=== PATIENT | female | born 1975 | race Caucasian/White ===

== ENCOUNTER 2016-09-21 16:14 | Outpatient (CLI) | payer OTHER ==
--- NOTE | 2016-09-23 16:18 | Mammography Report ---
DIGITAL SCREENING MAMMOGRAM: 09/21/2016 CLINICAL INDICATION: A 41-year-old, for baseline. TECHNIQUE: Routine CC and MLO projections were obtained of the breasts. Bilateral laterally exaggera billie craniocaudal views. FINDINGS: The breasts demonstrate scattered fibroglandular densities bilaterally. Intramammary lymph nodes are noted. No suspicious masses, clustered microcalcifications, or regions of architectural di stortion are identified. IMPRESSION: BENIGN FINDINGS. RECOMMENDATION: ROUTINE ANNUAL SCREENING UNLESS OTHERWISE CLINICALLY INDICATED. BIRADS CATEGORY 2-BENIGN FINDINGS. STANDARD QUALIFYING STATEMENTS 1. This examination was reviewed with the aid of Computer-Aided Detection (CAD). 2. A negative or benign imaging report should not delay biopsy if clinically suspicious findings are present. Consider surgical consultation if warranted. More than 5% of cancers are not identified by i maging. 3. Dense breasts may obscure an underlying neoplasm. JOB #: [id number] EXT JOB #:[id number]
== END 2016-09-21 16:15 | disposition home or self-care (01) ==
LOC: DI.N 16:14
PROVIDERS: ATTEND Physician Assistant Medical
DX: Z12.31 Encounter for screening mammogram for malignant neoplasm of breast (principal)
CPT/HCPCS: 77067

== ENCOUNTER 2017-05-07 22:08 | Emergency (ER) | payer BC, OTHER ==
--- NOTE | 2017-05-07 22:26 | ED Physician Documentation ---
PD HPI LOWER EXT INJURY - Stated complaint Stated Complaint: RT TOE INJURY - History obtained from History obtained from: Patient - History of Present Illness PD HPI LOW EXT INJURY LOCATION: Right, Foot, Toe (she fell from lower step of ladder and struck foot/toes (was not wearing shoes). She thinks toes bent up quickly, but also caught metal or such as lacs on underside of 2 toes. 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, Other - Present Medications Home Medications: Ambulatory Orders Medication Instructions Recorded Confirmed HYDROcod/ACETAM 5/325 [[place] 5/325] 1 tab PO Q6H PRN #12 tablet 05/07/17 Multivitamin [Multiple Vitamins] 1 each PO DAILY 05/07/17 05/07/17 - Allergies Allergies/Adverse Reactions: Allergies Allergy/AdvReac Type Severity Reaction Status Date / Time tolterodine tartrate * Allergy Severe throat Verified 05/07/17 22:27 [From Detrol] swelling - Social History Does the pt smoke?: No Smoking Status: Never smoker Does the pt have substance abuse?: No - Immunizations Immunizations are current?: Yes PD ED PE NORMAL - Vitals Vital signs reviewed: Yes - General General: Alert and oriented X 3, Well developed/nourished, Other (seems in pain due to toes/foot pain. ) - Derm Derm: Normal color, Warm and dry - Extremities Extremities: Other (right 3rd adn 4th toes with laceration on underside MTP crease, middle toe mostly, with lac 1 cm but not open in rested position. No bleeding nor FB seen. She can flex toes okay. Locally tender. ) - Neuro Neuro: No motor deficit, No sensory deficit, Other (normal color and cap refill in toes. ) Results - Vitals Vitals: Oxygen O2 Source Room air - Rads (name of study) foot Radiology: Prelim report reviewed, EMP read contemporaneously (no fractures) PD MEDICAL DECISION MAKING - ED course Complexity details: considered differential (toe laceration underside MTP crease. Would be hard to suture, and does not seem that it needs it. Closed with some glue and tried circumferential steri strips to cover it more than hold it tight per se. ), d/w patient Departure - Departure Disposition: 01 Home, Self Care Clinical Impression: Fall from ladder Qualifiers: Encounter type: initial encounter Qualified Code(s): W11.XXXA - Fall on and from ladder, initial encounter Toe laceration Qualifiers: Encounter type: initial encounter Toe: lesser toe Damage to nail status: without damage Foreign body presence: without foreign body Laterality: right Qualified Code(s): S91.114A - Laceration without foreign body of right lesser toe(s) without damage to nail, initial encounter Foot contusion Qualifiers: Encounter type: initial encounter Laterality: right Qualified Code(s): S90.31XA - Contusion of right foot, initial encounter Condition: Stable Record reviewed to determine appropriate education?: Yes Instructions: ED Contusion Foot, ED Laceration Foot Follow-Up: Debi Asif PA-C [Primary Care Provider] - Prescriptions: HYDROcod/ACETAM 5/325 [[place] 5/325] 1 tab PO Q6H PRN #12 tablet PRN Reason: Pain Comments: Keep the Steri-Strips clean and dry. Allow them to fall off on their own after several days. Regular walking and standing should be okay. Avoid bouncing or toe standing per se. Tylenol or ibuprofen if needed for pains. Add hydrocodone if needed. There are no fractures on x-ray. Presume the muscles ligaments are sprained and may take several days to week to fully improved. Recheck if signs of infection on the cuts. Progress activity as able. Discharge Date/Time: 05/07/17 23:44
[2017-05-07] MEDS ORDERED: HYDROcod/ACETAM 5/325 MG TABLET PO STA (22:54)
[2017-05-07] MEDS ORDERED: IBUPROFEN 600 MG TABLET PO STA (22:54)
--- NOTE | 2017-05-07 23:29 | XRAY Preliminary Report ---
Exam: XR FOOT 3 VIEW RT IMPRESSION: Normal foot radiography. [facility] SITE ID: [id number]
--- NOTE | 2017-05-07 23:30 | XRAY Report ---
EXAM: RIGHT FOOT RADIOGRAPHY EXAM DATE: 05/07/2017 11:21 PM. CLINICAL HISTORY: Pain in right distal foot and second through fourth toes after fall from step mariettade r. COMPARISON: None. TECHNIQUE: 3 views. FINDINGS: Bones: Normal. No fractures or bone lesions. Joints: Normal. No subluxations. Soft Tissues: Normal. No soft tissue swelling. IMPRESSION: Normal foot radiography. [facility] Referring Provider Line: [phone] SITE ID: [id number]
[2017-05-07] MEDS ORDERED: HYDROcod/ACET 5/325 Prepack 6 PO STA (23:31)
[2017-05-07 23:44] VITALS: BP 140/77
== END 2017-05-07 23:44 | disposition home or self-care (01) ==
LOC: ED 22:08
DX: S91.114A Laceration without foreign body of right lesser toe(s) without damage to nail, initial encounter (principal); W11.XXXA Fall on and from ladder, initial encounter
CPT/HCPCS: 73630; 99283; A9270

== ENCOUNTER 2018-02-20 14:39 | Outpatient (CLI) | payer OTHER ==
--- NOTE | 2018-02-21 10:07 | Mammography Report ---
Reason: SCREENING MAMMO Procedure Date: 02/20/2018 Accession Number: [id number] / [id number] Procedure: LOVE - Screening Mammo w/Conner CPT Code: FULL RESULT: EXAM: Screening Mammo w/Conner DATE: 02/20/2018 3:20 PM CLINICAL HISTORY: 42-year-old female presents for screening mammogram. TECHNIQUE: Bilateral CC, laterally exaggerated CC, MLO views were obtained. COMPARISON: 09/21/2016. FINDINGS: The breasts demonstrate heterogeneously dense fibroglandular parenchyma bilaterally. Typically benign skin calcifications are again seen. Intramammary right breast lymph nodes are stable. No suspicious masses, clustered microcalcifications, or regions of architectural distortion are identified. IMPRESSION: Benign findings RECOMMENDATION: Routine annual screening unless otherwise clinically indicated. BIRADS CATEGORY 2: Benign findings STANDARD QUALIFYING STATEMENTS: 1. This examination was not reviewed with the aid of Computer-Aided Detection (CAD). 2. A negative or benign imaging report should not delay biopsy if clinically suspicious findings are present. Consider surgical consultation if warrented. More than 5% of cancers are not identified by imaging. 3. Dense breasts may obscure an underlying neoplasm. 4. This examination was reviewed with the aid of 3D breast imaging (tomosynthesis).
== END 2018-02-20 14:40 | disposition home or self-care (01) ==
LOC: DI 14:39
PROVIDERS: ATTEND Family Medicine
DX: Z12.31 Encounter for screening mammogram for malignant neoplasm of breast (principal)
CPT/HCPCS: 77063; 77067

== ENCOUNTER 2018-06-29 21:56 | Outpatient (CLI) | payer OTHER ==
--- NOTE | 2018-06-30 05:54 | Ultrasound Report ---
Reason: LOWER ABD PAIN,BILATERAL Procedure Date: 06/29/2018 Accession Number: [id number] / [id number] Procedure: US - Abdomen Complete CPT Code: FULL RESULT: EXAM: ABDOMEN ULTRASOUND EXAM DATE: 06/29/2018 11:49 PM. CLINICAL HISTORY: Lower abdominal pain, bilateral. COMPARISON: None. TECHNIQUE: Real-time scanning was performed with static images obtained. FINDINGS: Liver: Increased echogenicity. No focal lesion seen. 17.3 cm. Main portal vein flow: Hepatopetal. Gallbladder: Normal. No stones, wall thickening, or sonographic Joe's sign. Biliary System: Common bile duct measures 2 mm. No intrahepatic or extrahepatic ductal dilatation. Pancreas: Visualized portion is unremarkable. Kidneys: Right: 10.0 cm longitudinally. Normal. No contour-deforming mass, stones, or hydronephrosis. Left: 11.5 cm longitudinally. Normal. No contour-deforming mass, stones, or hydronephrosis. Spleen: 12.1 x 12.3 x 3.3 cm. Normal in size and echotexture. Aorta and Inferior Vena Cava: Unremarkable. Other: None. IMPRESSION: 1. No etiology for abdominal pain seen. 2. Fatty liver. [facility]
== END 2018-06-29 21:57 | disposition home or self-care (01) ==
LOC: DI 21:56
PROVIDERS: ATTEND Physician Assistant Medical
DX: R10.9 Unspecified abdominal pain (principal); K76.0 Fatty (change of) liver, not elsewhere classified
CPT/HCPCS: 76700

== ENCOUNTER 2018-09-13 17:19 | Outpatient (CLI) | payer OTHER ==
--- NOTE | 2018-09-14 10:15 | Ultrasound Report ---
Reason: INTERMITTENT LOWER ADB/PELVIC PAIN Procedure Date: 09/13/2018 Accession Number: [id number] / [id number] Procedure: US - Pelvic w/Transvaginal CPT Code: FULL RESULT: EXAM: PELVIC ULTRASOUND EXAM DATE: 09/13/2018 06:24 PM. CLINICAL HISTORY: INTERMITTENT LOWER ADB/PELVIC PAIN. COMPARISON: Pelvic ultrasound 05/31/2012.. TECHNIQUE: Realtime transabdominal pelvic scan performed to identify the uterus and adnexa and as an overview of other pelvic structures, followed by transvaginal scan to provide greater detail of the uterus and adnexa, with static image documentation. FINDINGS: Uterus: 12.3 x 4.9 x 5.9 cm, volume 185 cc. Anteverted position. Normal overall size and echotexture. Masses: 1. Left lateral body exophytic fibroid 3.5 x 2.7 x 2.4 cm. 2. Right posterolateral body exophytic fibroid 1.7 x 1.2 x 1.5 cm. Endometrium: 8 0 mm. Normal. Cervix: Several small nabothian cysts. Right Ovary: 5.0 x 2.6 x 3.4 cm, volume 23.1 cc. Normal echotexture and blood flow. Seen only transabdominally. Left Ovary: 3.3 x 2 x 3 x 2.8 cm, volume 11.1 cc. Normal echotexture and blood flow. Free Fluid: None. Other: None. IMPRESSION: 1. Uterine fibroids. 2. Nabothian cysts. 3. Ovaries are unremarkable. Right ovary seen only transabdominally. [facility]
== END 2018-09-13 17:20 | disposition home or self-care (01) ==
LOC: DI 17:19
PROVIDERS: ATTEND Physician Assistant Medical
DX: D25.9 Leiomyoma of uterus, unspecified (principal); N88.8 Other specified noninflammatory disorders of cervix uteri
CPT/HCPCS: 76830; 76856

== ENCOUNTER 2018-10-12 16:54 | Outpatient (CLI) | payer OTHER ==
[2018-10-12 21:36] LABS: CANDIDA GROUP DNA NEGATIVE (NEGATIVE); CANDIDA KRUSEI DNA NEGATIVE (NEGATIVE); TRICHOMONAS VAGINALIS DNA NEGATIVE (NEGATIVE)
== END 2018-10-12 23:59 | disposition home or self-care (01) ==
LOC: LAB.R 16:54
PROVIDERS: ATTEND Obstetrics & Gynecology
DX: R10.2 Pelvic and perineal pain (principal); N89.8 Other specified noninflammatory disorders of vagina; N76.0 Acute vaginitis
CPT/HCPCS: 87661; 87801

== ENCOUNTER 2020-05-06 08:00 | Outpatient (CLI) | payer OTHER ==
[2020-05-06 22:57] LABS: CANDIDA GROUP DNA NEGATIVE (NEGATIVE); CANDIDA KRUSEI DNA NEGATIVE (NEGATIVE); TRICHOMONAS VAGINALIS DNA NEGATIVE (NEGATIVE)
== END 2020-05-06 23:59 | disposition home or self-care (01) ==
LOC: LAB.R 08:00
PROVIDERS: ATTEND Obstetrics & Gynecology
DX: B37.3 Candidiasis of vulva and vagina (principal)
CPT/HCPCS: 87661; 87801

== ENCOUNTER 2020-07-02 15:41 | Outpatient (CLI) | payer OTHER ==
--- NOTE | 2020-07-02 16:04 | XRAY Report ---
PROCEDURE: Chest 2 View X-Ray INDICATIONS: UNSPECIFIED ASTHMA, COUGH, SOB TECHNIQUE: 2 view(s) of the chest. COMPARISON: None. FINDINGS: Surgical changes and devices: None. Lungs and pleura: No pleural effusions or pneumothorax. Lungs are clear. Mediastinum: Mediastinal contours are normal. Heart size is normal. Bones and chest wall: No suspicious bony abnormalities. Soft tissues appear unremarkable. IMPRESSION: No acute cardiopulmonary process demonstrated radiographically. Reviewed by: Perez Resendez MD on 07/02/2020 4:03 PM PDT Approved by: Perez Resendez MD on 07/02/2020 4:03 PM PDT Station ID: [id number]
== END 2020-07-02 15:42 | disposition home or self-care (01) ==
LOC: DI.N 15:41
PROVIDERS: ATTEND Physician Assistant
DX: J45.909 Unspecified asthma, uncomplicated (principal); R05 Cough; R06.02 Shortness of breath

== ENCOUNTER 2020-08-01 09:27 | Outpatient (CLI) | payer OTHER | END 2020-08-01 09:28 | disposition home or self-care (01) | LOC: RT 09:27 | PROVIDERS: ATTEND Physician Assistant | DX: J45.909 Unspecified asthma, uncomplicated (principal); M51.34 Other intervertebral disc degeneration, thoracic region; M40.204 Unspecified kyphosis, thoracic region | CPT/HCPCS: 94010 ==

== ENCOUNTER 2020-08-01 10:28 | Outpatient (CLI) | payer OTHER ==
--- NOTE | 2020-08-01 11:07 | XRAY Report ---
PROCEDURE: Thoracic Spine 2 View INDICATIONS: PAIN ACROSS MID BACK X 3 MONTHS TECHNIQUE: 3 views of the thoracic spine were acquired. COMPARISON: None. FINDINGS: Bones: No fractures or dislocations. No suspicious bony lesions. Degenerative endplate changes thro ughout mid to lower thoracic spine is seen with mild kyphosis centered at approximately T8-9 level. 1 2 pairs of ribs are noted, and appear intact where visualized. Soft tissues: No paravertebral stripe thickening. 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 No fracture or d islocation. Reviewed by: Jared Turcios MD on 08/01/2020 10:06 AM EUNICE Approved by: Jared Turcios MD on 08/01/2020 10:06 AM EUNICE Station ID: [id number]
== END 2020-08-01 10:29 | disposition home or self-care (01) ==
LOC: DI 10:28
PROVIDERS: ATTEND Physician Assistant
DX: M51.34 Other intervertebral disc degeneration, thoracic region (principal); M40.204 Unspecified kyphosis, thoracic region

== ENCOUNTER 2020-10-30 16:13 | Outpatient (CLI) | payer OTHER ==
--- NOTE | 2020-10-31 12:02 | Ultrasound Report ---
PROCEDURE: Pelvic w/Transvaginal INDICATIONS: PAIN TECHNIQUE: Real-time scanning was performed of the pelvic organs, with image documentation. Additional endovagi nal scanning was necessary due to incomplete visualization of the adnexal and endometrial structures by transabdominal scanning. COMPARISON: None. FINDINGS: No pathologic free abdominal or pelvic fluid. Uterus: Uterus is normal in size at 13.3 x 5.0 x 6.8 cm. The endometrium is not seen. Multiple fibr oids are present. Within the right superolateral aspect of the uterus in an intramural location there is a 30 mm diameter fibroid. Within the right mid/lateral uterus in an intramural location, there is a 22 mm fibroid. Within the right inferolateral uterus in intramural location, there is a 20 mm fibr oid. Within the left lateral uterus in a subserosal location, there is a 23 mm fibroid. Ovaries: There is a hemorrhagic cyst measuring 32 mm within the right ovary. Left ovary demonstrates a 30 mm cyst. IMPRESSION: 1. Multiple uterine fibroids. If patient has symptoms referable to uterine fibroids, uterine fibroid embolization may be helpful for further treatment. Interventional radiology consultation with Dr. Rajiv sosa at [facility] is recommended. Reviewed by: Bryce Peterson MD on 10/31/2020 12:01 PM PDT Approved by: Bryce Peterson MD on 10/31/2020 12:01 PM PDT Station ID: [id number]
== END 2020-10-30 16:14 | disposition home or self-care (01) ==
LOC: DI 16:13
PROVIDERS: ATTEND Physician Assistant
DX: D25.1 Intramural leiomyoma of uterus (principal); D25.2 Subserosal leiomyoma of uterus